=== PATIENT | male | born 1950 | race Caucasian/White ===

== ENCOUNTER → 2021-01-03 03:56 | Outpatient (CLI) | payer MEDICARE, SELFPAY ==
[2021-01-03 20:06] LABS: SARS-CoV-2 RNA PCR Negative
== END ==
PROVIDERS: PCP Internal Medicine; Visit Provider Internal Medicine Gastroenterology
DX: Z01.812 Encounter for preprocedural laboratory examination (principal); Z20.822 Contact with and (suspected) exposure to COVID-19
CPT/HCPCS: C9803; U0003; U0005

== ENCOUNTER 2021-01-06 03:17 | Day surgery (SDC) | payer MEDICARE, SELFPAY ==
[2020-12-27 15:46] VITALS: BMI 33.5
[2021-01-06 08:20] VITALS: BP 167/92; PULSE 80; RESP 16; TEMP 35.7; O2SAT 99; BMI 33.5
[2021-01-06] MEDS: LACTATED RINGERS 1,000 ML 150 ML IV CONT (08:34)
--- NOTE | 2021-01-06 09:12 | P.PNAN_ITS ---
Anes - Initial Pre Proc Eval Procedure: Operation Date: 01/06/21 09:30 Proposed Procedures p Screening Colonoscopy - Karson Torre MD Date/Time: 01/06/21 09:12 Surgeon: Karson Torre MD Pre Op Diagnosis: neoplasm screening Patient Data Age: 70 Gender: M Height: 5 ft 11 in Weight: 109 kg Last Vital Signs Temp 96.3 F L 01/06/21 08:20 Pulse 80 01/06/21 08:20 Resp 16 01/06/21 08:20 BP 167/92 H 01/06/21 08:20 Pulse Ox 99 01/06/21 08:20 Allergies Allergy/AdvReac Type Severity Reaction Status Date / Time No Known Allergies Allergy Verified 01/06/21 08:18 Home Medications Medication Instructions Recorded Confirmed Type aspirin 81 mg tablet,delayed 81 mg PO DAILY 08/08/20 01/06/21 History release carvedilol 12.5 mg tablet 12.5 mg PO Q12H 08/08/20 01/06/21 History levothyroxine 112 mcg tablet 112 mcg PO DAILY 08/08/20 01/06/21 History olmesartan 20 mg tablet 20 mg PO DAILY 08/08/20 01/06/21 History rosuvastatin 20 mg tablet 20 mg PO DAILY 08/08/20 01/06/21 History Patient hx anesthesia problems: none Family hx anesthesia problems: none PMFSH Past Medical History Medical History (Updated 08/09/20 @ 11:58 by SHELLIE Thornton) Hyperlipidemia Hypertension Hypothyroidism Screening for colon cancer Surgical History Surgical History (Updated 08/08/20 @ 13:35 by SHELLIE Thornton) History of intravascular stent placement 2012 Hx of hernia repair S/P coronary artery stent placement Family History Family History (Updated 08/08/20 @ 12:58 by SHELLIE Thornton) Mother No problems noted. 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 Questions were solicited and answers provided to the satisfaction of the patient/family/POA.
--- NOTE | 2021-01-06 09:12 | PM.HPGS ---
History of Present Illness History of Present Illness Consent: Risks, benefits, and alternatives have been discussed and questions answered. Patient agrees to proceed with procedure. Chief complaint: neoplasm screening Narrative: Stefano Norman Jr. is a 70 year old male with last colonoscopy 2009 Review of Systems Constitutional: Constitutional: Denies headache(s) and Denies weakness Eyes: Eyes: Denies blurry vision ENT: Reports Normal hearing present, Denies headache(s) and Denies neck pain Cardiovascular: Cardiovascular: Denies chest pain and Denies dyspnea Respiratory: Respiratory: Denies dyspnea Gastrointestinal: Gastrointestinal: Reports no additional gastrointestinal complaints Genitourinary: Genitourinary: Denies dysuria Musculoskeletal: Musculoskeletal: Denies neck pain Integumentary/Breasts: Skin/Breast: Denies dry skin Neurologic: Reports Normal hearing present, Denies headache(s) and Denies weakness Psychiatric: Psychiatric: Denies anxiety Endocrine: Endocrine: Denies change in body appearance Hematologic/Lymphatic: Hematologic/Lymphatic: Denies easy bleeding Allergic/Immunologic: Allergic/Immunologic: Denies urticaria PMFSH Past Medical History Medical History (Updated 08/09/20 @ 11:58 by SHELLIE Thornton) Hyperlipidemia Hypertension Hypothyroidism Screening for colon cancer Surgical History Surgical History (Updated 08/08/20 @ 13:35 by SHELLIE Thornton) History of intravascular stent placement 2011 Hx of hernia repair S/P coronary artery stent placement Family History Family History (Updated 08/08/20 @ 12:58 by SHELLIE Thornton) Mother No problems noted. 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 Gender identity (if verbalized by the patient): Male Spiritual care concerns: No Meds Home Medications and Allergies Home Medications Medication Instructions Recorded Confirmed Type aspirin 81 mg tablet,delayed 81 mg PO DAILY 08/08/20 01/06/21 History release carvedilol 12.5 mg tablet 12.5 mg PO Q12H 08/08/20 01/06/21 History levothyroxine 112 mcg tablet 112 mcg PO DAILY 08/08/20 01/06/21 History olmesartan 20 mg tablet 20 mg PO DAILY 08/08/20 01/06/21 History rosuvastatin 20 mg tablet 20 mg PO DAILY 08/08/20 01/06/21 History Allergies Allergy/AdvReac Type Severity Reaction Status Date / Time No Known Allergies Allergy Verified 01/06/21 08:18 Vital Signs Vital Signs - 24 hr 01/06/21 08:20 Temperature 96.3 F L Pulse Rate 80 Respiratory Rate 16 Blood Pressure 167/92 H Pulse Oximetry 99 Exam Const: General: comfortable and no acute distress HENMT: General nose exam: Normal nares present Eyes: General: appearance normal, both eyes and all related structures Neck: Neck: no JVD Resp: Auscultation: clear to auscultation bilaterally Cardio: Rate: regular rate Rhythm: regular rhythm GI: Inspection: non-distended GI Palp: Yes Soft to palpation Skin: General skin exam: normal color Neuro: General: gait normal Speech: normal speech Extrem: General: normal to inspection Psych: Mental Status: mental status grossly normal Assessment and Plan Assessment and plan (1) Screening for colon cancer: Code(s): Z12.11 - Encounter for screening for malignant neoplasm of colon Status: Acute Assessment and Plan: colonoscopy
[2021-01-06 09:29] VITALS: BP 124/69; PULSE 65; RESP 18; O2SAT 97
[2021-01-06 09:39] VITALS: BP 117/64; PULSE 60; RESP 16; O2SAT 100
[2021-01-06 09:49] VITALS: BP 124/79; PULSE 62; RESP 18; O2SAT 100
== END 2021-01-06 10:01 | disposition home or self-care (01) ==
PROVIDERS: PCP Internal Medicine; Visit Provider Internal Medicine Gastroenterology
PROC: 0DJD8ZZ Inspection of Lower Intestinal Tract, Via Natural or Artificial Opening Endoscopic (ICD-10-PCS; CPT 45378; principal; 2021-01-06 09:30)
DX: Z12.11 Encounter for screening for malignant neoplasm of colon (principal); K57.30 Diverticulosis of large intestine without perforation or abscess without bleeding; K64.8 Other hemorrhoids; I10 Essential (primary) hypertension; E78.5 Hyperlipidemia, unspecified; E03.9 Hypothyroidism, unspecified; Z79.82 Long term (current) use of aspirin; Z95.5 Presence of coronary angioplasty implant and graft; Z87.891 Personal history of nicotine dependence; E66.9 Obesity, unspecified; Z68.33 Body mass index [BMI] 33.0-33.9, adult
CPT/HCPCS: G0121; J2704; J7120